=== PATIENT | male | born 1950 | race Caucasian/White ===

== ENCOUNTER 2016-10-22 08:49 | Emergency (ER) | payer BC ==
[2016-10-22 09:39] VITALS: BP 110/69
--- NOTE | 2016-10-22 10:13 | UC ---
Lower Extremity/Ankle HPI - HPI Summary HPI Summary: 65 yo male with right ankle pain and swelling x a day red and warm hx of ankle gout this is typical of his symtpoms hurts with light touch - History of Current Complaint Chief Complaint: UCLowerExtremity Stated Complaint: RIGHT ANKLE PAIN Time Seen by Provider: 10/22/16 09:59 Hx Obtained From: Patient Onset/Duration: Gradual Onset Severity Initially: Severe Severity Currently: Severe Pain Intensity: 8 Pain Scale Used: 0-10 Numeric Aggravating Factor(s): Standing, Ambulation Alleviating Factor(s): Rest Able to Bear Weight: Yes - Allergies/Home Medications Allergies/Adverse Reactions: Allergies Allergy/AdvReac Type Severity Reaction Status Date / Time No Known Allergies Allergy Verified 10/22/16 09:33 PMH/Surg Hx/FS Hx/Imm Hx Previously Healthy: Yes - gout - Surgical History Surgical History: None - Family History Known Family History: Positive: Other - denies FHx of gout - Social History Alcohol Use: None Substance Use Type: None Smoking Status (MU): Never Smoked Tobacco Review of Systems Constitutional: Negative Skin: Negative Eyes: Negative ENT: Negative Respiratory: Negative Cardiovascular: Negative Gastrointestinal: Negative Genitourinary: Negative Motor: Negative Neurovascular: Negative Musculoskeletal: Arthralgia Neurological: Negative Psychological: Negative All Other Systems Reviewed And Are Negative: Yes Physical Exam Triage Information Reviewed: Yes Appearance: Well-Appearing, No Pain Distress - using crutches, Well-Nourished Vital Signs: Initial Vital Signs Temp 98.1 F 10/22/16 09:33 Pulse 68 10/22/16 09:33 Resp 18 10/22/16 09:33 BP 110/69 10/22/16 09:33 Pulse Ox 98 10/22/16 09:33 Eyes: Positive: Conjunctiva Clear ENT: Positive: Hearing grossly normal. Negative: Nasal congestion, Nasal drainage, Trismus, Muffled/hoarse voice Neck: Positive: Supple, Nontender Respiratory: Positive: Lungs clear, Normal breath sounds, No respiratory distress, No accessory muscle use Cardiovascular: Positive: RRR, No Murmur Abdomen Description: Positive: Nontender, No Organomegaly Musculoskeletal: Positive: ROM Limited @, Edema @, Other: - right ankle red and warm as well as lat swelling Neurological: Positive: Alert Psychological Exam: Normal Skin Exam: Normal Lower Extremity Course/Dx - Differential Dx/Diagnosis Provider Diagnoses: gout right ankle Discharge - Discharge Plan Condition: Stable Disposition: HOME Prescriptions: Methylprednisolone [Medrol Dosepak 4 MG*] 0 mg PO .SEE NESHA INSTRUCTION #1 tab Patient Education Materials: Low Purine Diet (ED), Gout (ED) Referrals: Non Staff,Doctor [Primary Care Provider] - Additional Instructions: aleve 2 twice daily with food as needed for pain take your ranitidine while on medrol dose nesha and aleve recheck in 4 days if not better
== END 2016-10-22 10:20 | disposition home or self-care (01) ==
LOC: UCCORT 08:49
DX: M10.071 Idiopathic gout, right ankle and foot (principal)
CPT/HCPCS: 99202; G0463